=== PATIENT | female | born 1945 | race Caucasian/White ===

== ENCOUNTER 2019-12-09 04:50 | Inpatient (IN) ==
[2019-12-09] MEDS ORDERED: Naloxone 0.4 MG/ML INJ IVP PRN (07:51)
[2019-12-09] MEDS ORDERED: Ipratropium/Albuterol Neb 3 ML IH PRN (07:54)
[2019-12-09 10:10] LABS: Basophils % 0.5 %; Eosinophils # 0.1 K/mcL (0.0-0.6); Eosinophils % 0.7 %; Hematocrit 42.1 % (35.3-44.9); Hemoglobin 12.9 g/dL (11.5-15.4); Immature Granulocytes % 0.3 % (0-4); Lymphocytes # 1.2 K/mcL (0.6-4.6); Lymphocytes % 16.1 %; Mean Corpuscular HGB Conc 30.6 g/dL (31.6-35.5); Mean Corpuscular Hemoglobin 28.5 pg (28.0-33.3); Mean Corpuscular Volume 93.1 fL (83.0-100.0); Mean Platelet Volume 9.2 fL (9.4-12.4); Monocytes # 0.6 K/mcL (0.0-1.3); Neutrophils # 5.5 K/mcL (1.6-8.9); Platelet Count 441 K/mcL (140-400); Red Blood Count 4.52 M/mcL (3.82-4.97); Red Cell Distribution Width 15.6 % (11.5-14.5); Segmented Neutrophils % 74.4 %; White Blood Count 7.4 K/mcL (4.3-11.1)
[2019-12-09 10:29] LABS: Alanine Aminotransferase 3 Units/L (7-52); Albumin/Globulin Ratio 1.2 (1.1-2.2); Alkaline Phosphatase 90 Units/L (34-104); Aspartate Amino Transferase 16 Units/L (13-39); BUN/Creatinine Ratio 22 (6-26); Bilirubin,Total 0.4 mg/dL (0.3-1.0); Blood Urea Nitrogen 18 mg/dL (8-23); Calcium 9.6 mg/dL (8.6-10.3); Carbon Dioxide 24 mEq/L (23-29); Chloride 102 mEq/L (98-107); Globulin 3.4 g/dL (2.4-3.5); Glucose 110 mg/dL (70-105); Osmolality,Calculated 283 (280-300); Potassium 4.6 mEq/L (3.5-5.1); Sodium 135 mEq/L (136-145); Total Protein 7.4 g/dL (6.4-8.9); eGFR For African Americans > 60 (> 60); eGFR For Non-African Americans > 60 (> 60)
[2019-12-09] MEDS: lisinopriL 5 MG TABLET PO SCH (11:03)
[2019-12-09] MEDS: carvediloL 6.25 MG TABLET PO SCH ×2 (11:03→20:49)
[2019-12-09] MEDS: Spironolactone 25 MG TABLET PO SCH (11:03)
[2019-12-09] MEDS: Nicotine 14 MG PATCH.TD24 TD SCH (17:04)
[2019-12-09] MEDS ORDERED: *HR* Rivaroxaban 10 MG TABLET PO SCH (18:00)
[2019-12-09] MEDS ORDERED: Acetaminophen 325 MG TABLET PO ONE (20:59)
[2019-12-10] MEDS ORDERED: Acetaminophen 325 MG TABLET PO ONE (03:20)
[2019-12-10 03:25] LABS: Hematocrit 37.5 % (35.3-44.9); Hemoglobin 11.5 g/dL (11.5-15.4); Mean Corpuscular HGB Conc 30.7 g/dL (31.6-35.5); Mean Corpuscular Hemoglobin 28.4 pg (28.0-33.3); Mean Corpuscular Volume 92.6 fL (83.0-100.0); Mean Platelet Volume 9.1 fL (9.4-12.4); Platelet Count 365 K/mcL (140-400); Red Blood Count 4.05 M/mcL (3.82-4.97); Red Cell Distribution Width 15.3 % (11.5-14.5); White Blood Count 6.3 K/mcL (4.3-11.1)
[2019-12-10 03:42] LABS: BUN/Creatinine Ratio 28 (6-26); Blood Urea Nitrogen 20 mg/dL (8-23); Calcium 9.1 mg/dL (8.6-10.3); Carbon Dioxide 26 mEq/L (23-29); Chloride 103 mEq/L (98-107); Glucose 115 mg/dL (70-105); Osmolality,Calculated 284 (280-300); Potassium 4.3 mEq/L (3.5-5.1); Sodium 135 mEq/L (136-145); eGFR For African Americans > 60 (> 60); eGFR For Non-African Americans > 60 (> 60)
[2019-12-10] MEDS: Nicotine 14 MG PATCH.TD24 TD SCH (08:20)
[2019-12-10] MEDS: lisinopriL 5 MG TABLET PO SCH (08:20)
[2019-12-10] MEDS: Spironolactone 25 MG TABLET PO SCH (08:20)
[2019-12-10] MEDS: carvediloL 6.25 MG TABLET PO SCH ×2 (08:20→19:58)
[2019-12-10] MEDS ORDERED: Acetaminophen 325 MG TABLET PO PRN (13:52)
[2019-12-10] MEDS ORDERED: cefTRIAXone 1,000 MG in Water for inj. (sterile) 10 ML IVP SCH (19:00)
[2019-12-10] MEDS: Doxycycline 100 MG CAPSULE PO SCH (19:58)
[2019-12-11 05:55] LABS: Mean Corpuscular HGB Conc 30.8 g/dL (31.6-35.5); Mean Corpuscular Hemoglobin 27.8 pg (28.0-33.3); Mean Corpuscular Volume 90.5 fL (83.0-100.0); Mean Platelet Volume 9.1 fL (9.4-12.4); Platelet Count 408 K/mcL (140-400); Red Blood Count 4.31 M/mcL (3.82-4.97); Red Cell Distribution Width 15.3 % (11.5-14.5); White Blood Count 6.9 K/mcL (4.3-11.1)
[2019-12-11] MEDS: MethylPREDNISolone 40 MG/ML VIAL IVP SCH ×2 (06:02→17:33)
[2019-12-11 06:10] LABS: BUN/Creatinine Ratio 27 (6-26); Blood Urea Nitrogen 18 mg/dL (8-23); Calcium 9.1 mg/dL (8.6-10.3); Carbon Dioxide 26 mEq/L (23-29); Chloride 101 mEq/L (98-107); Glucose 106 mg/dL (70-105); Osmolality,Calculated 282 (280-300); Potassium 4.2 mEq/L (3.5-5.1); Sodium 135 mEq/L (136-145); eGFR For African Americans > 60 (> 60); eGFR For Non-African Americans > 60 (> 60)
[2019-12-11] MEDS ORDERED: *HR* Rocuronium Bromide 50 MG/5 ML VIAL ONE (07:48)
[2019-12-11] MEDS ORDERED: *HR* Succinylcholine 200 MG/10 ML VIAL IVP ONE (07:48)
[2019-12-11] MEDS ORDERED: Dexamethasone 4 MG/ML VIAL ONE (07:48)
[2019-12-11] MEDS ORDERED: Ondansetron 4 MG/2 ML VIAL ONE (07:48)
[2019-12-11] MEDS ORDERED: Lidocaine -MPF 2% 2 ML VIAL ONE (07:48)
[2019-12-11] MEDS ORDERED: Lidocaine -MPF 4% 5 ML AMPUL ONE (07:48)
[2019-12-11] MEDS ORDERED: *HR* Propofol 200 MG/20 ML VIAL IVP ONE (07:49)
[2019-12-11] MEDS ORDERED: *HR* FentaNYL (PF) 100 MCG/2 ML VIAL ONE (07:49)
[2019-12-11] MEDS ORDERED: *HR* PHENYLEPHRINE 1,000 MCG/10 ML SYRINGE IVP ONE (08:57)
[2019-12-11] MEDS ORDERED: *HR* EPINEPHrine 1 MG/10 ML SYRINGE INTRATRACH PRN (09:20)
[2019-12-11] MEDS ORDERED: Artificial Tears SOLN 15 ML BOTTLE BOTH EYES PRN (09:25)
[2019-12-11] MEDS: Spironolactone 25 MG TABLET PO SCH (11:04)
[2019-12-11] MEDS: Nicotine 14 MG PATCH.TD24 TD SCH (11:05)
[2019-12-11] MEDS: carvediloL 6.25 MG TABLET PO SCH ×2 (11:05→21:52)
[2019-12-11] MEDS: lisinopriL 5 MG TABLET PO SCH (11:06)
[2019-12-11] MEDS: FentaNYL (PF) 1,000 MCG/100 ML IV.SOLN IVC SCH ×2 (11:07→19:19)
[2019-12-11] MEDS: Midazolam HCl 50 MG/100 ML IV.SOLN IVC SCH (11:08)
[2019-12-11 11:39] LABS: ABG Base Excess 1 mEq/L (-2 to 3); ABG HCO3 28 mEq/L (21-27); ABG Oxygen Saturation 95 % (95-98); ABG PCO2 51 mmHg (35-45); ABG PH 7.35 pH Units (7.32-7.45); ABG PO2 80 mmHg (85-104); ABG TCO2 30 mEq/L (20-26); Blood Gas Modality AF; Blood Gas VT 400 cc
[2019-12-11] MEDS ORDERED: *HR* EPINEPHrine 1 MG/10 ML SYRINGE ONE (11:48)
[2019-12-11] MEDS: Chlorhexidine Rinse 15 ML MOUTHWASH MM SCH ×2 (12:56→19:46)
[2019-12-11] MEDS: Doxycycline 100 MG CAPSULE PO SCH ×2 (12:56→19:48)
[2019-12-11] MEDS: Artificial Tears SOLN 15 ML BOTTLE BOTH EYES SCH ×3 (12:56→19:47)
[2019-12-11] MEDS: cefTRIAXone 1,000 MG in Water for inj. (sterile) 10 ML IVP SCH (17:32)
[2019-12-11] MEDS ORDERED: 0.9 % Sodium Chloride 500 ML IVC ONE (22:14)
[2019-12-12] MEDS: Artificial Tears SOLN 15 ML BOTTLE BOTH EYES SCH ×7 (00:10→23:36)
[2019-12-12] MEDS ORDERED: 0.9 % Sodium Chloride 1,000 ML IVC SCH (02:15)
[2019-12-12] MEDS ORDERED: 0.9 % Sodium Chloride 500 ML IVC ONE (02:28)
[2019-12-12] MEDS ORDERED: 0.9 % Sodium Chloride 500 ML ONE (02:33)
[2019-12-12 04:19] LABS: Hematocrit 41.1 % (35.3-44.9); Hemoglobin 12.8 g/dL (11.5-15.4); Immature Granulocytes % 0.3 % (0-4); Lymphocytes # 0.9 K/mcL (0.6-4.6); Lymphocytes % 10.3 %; Mean Corpuscular HGB Conc 31.1 g/dL (31.6-35.5); Mean Corpuscular Hemoglobin 28.4 pg (28.0-33.3); Mean Corpuscular Volume 91.3 fL (83.0-100.0); Mean Platelet Volume 8.9 fL (9.4-12.4); Monocytes # 0.3 K/mcL (0.0-1.3); Monocytes % 3.3 %; Neutrophils # 7.7 K/mcL (1.6-8.9); Platelet Count 421 K/mcL (140-400); Red Cell Distribution Width 15.4 % (11.5-14.5); Segmented Neutrophils % 86.1 %
[2019-12-12 04:33] LABS: Calcium 8.7 mg/dL (8.6-10.3); Potassium 4.8 mEq/L (3.5-5.1)
[2019-12-12 04:52] LABS: ABG Base Excess -2 mEq/L (-2 to 3); ABG HCO3 25 mEq/L (21-27); ABG Oxygen Saturation 97 % (95-98); ABG PCO2 46 mmHg (35-45); ABG PH 7.34 pH Units (7.32-7.45); ABG PO2 94 mmHg (85-104); ABG TCO2 26 mEq/L (20-26); Blood Gas Modality ASSIST CONTROL; Blood Gas VT 400 cc
[2019-12-12] MEDS: MethylPREDNISolone 40 MG/ML VIAL IVP SCH ×2 (05:00→17:24)
[2019-12-12] MEDS: Nicotine 14 MG PATCH.TD24 TD SCH (07:38)
[2019-12-12] MEDS: Spironolactone 25 MG TABLET PO SCH (07:38)
[2019-12-12] MEDS: Doxycycline 100 MG CAPSULE PO SCH ×2 (07:38→20:02)
[2019-12-12] MEDS: carvediloL 6.25 MG TABLET PO SCH (07:38)
[2019-12-12] MEDS: Chlorhexidine Rinse 15 ML MOUTHWASH MM SCH ×2 (07:38→20:03)
[2019-12-12] MEDS: lisinopriL 5 MG TABLET PO SCH (07:38)
[2019-12-12] MEDS ORDERED: Lidocaine -MPF 2% 2 ML VIAL ONE (08:29)
[2019-12-12] MEDS ORDERED: *HR* Midazolam HCl 2 MG/2 ML VIAL ONE (08:30)
[2019-12-12] MEDS ORDERED: *HR* Vasopressin 20 UNIT/ML VIAL ONE (08:34)
[2019-12-12] MEDS ORDERED: *HR* EPINEPHrine 1 MG/10 ML SYRINGE INTRATRACH PRN (09:57)
[2019-12-12] MEDS ORDERED: *HR* Rocuronium Bromide 50 MG/5 ML VIAL ONE (10:04)
[2019-12-12] MEDS ORDERED: *HR* EPINEPHrine 1 MG/10 ML SYRINGE ONE (10:06)
[2019-12-12] MEDS: FentaNYL (PF) 1,000 MCG/100 ML IV.SOLN IVC SCH ×2 (11:36→23:37)
[2019-12-12] MEDS ORDERED: Ringers Solution, Lactated 250 ML IVC PRN (12:03)
[2019-12-12 14:53] LABS: Source of Body Fluid LUL BAL
[2019-12-12] MEDS: Isovue-370 500 ML BOTTLE IVP ONE (16:46)
[2019-12-12 17:21] LABS: Appearance of Body Fluid Cloudy (Clear); Volume of Body Fluid 25 mL
[2019-12-12] MEDS: cefTRIAXone 1,000 MG in Water for inj. (sterile) 10 ML IVP SCH (17:24)
[2019-12-12] MEDS ORDERED: Ringers Solution, Lactated 500 ML IVC ONE (18:43)
[2019-12-12] MEDS: Midazolam HCl 50 MG/100 ML IV.SOLN IVC SCH (20:03)
[2019-12-13] MEDS: Artificial Tears SOLN 15 ML BOTTLE BOTH EYES SCH ×3 (04:26→10:58)
[2019-12-13 04:44] LABS: ABG Base Excess -2 mEq/L (-2 to 3); ABG HCO3 24 mEq/L (21-27); ABG Oxygen Saturation 97 % (95-98); ABG PCO2 44 mmHg (35-45); ABG PH 7.35 pH Units (7.32-7.45); ABG PO2 99 mmHg (85-104); ABG TCO2 26 mEq/L (20-26); Blood Gas Modality ASSIST CONTROL; Blood Gas VT 400 cc
[2019-12-13] MEDS: MethylPREDNISolone 40 MG/ML VIAL IVP SCH (06:10)
[2019-12-13 07:16] LABS: Hematocrit 39.2 % (35.3-44.9); Hemoglobin 11.9 g/dL (11.5-15.4); Immature Granulocytes % 0.4 % (0-4); Lymphocytes # 0.7 K/mcL (0.6-4.6); Lymphocytes % 6.4 %; Mean Corpuscular HGB Conc 30.4 g/dL (31.6-35.5); Mean Corpuscular Hemoglobin 27.9 pg (28.0-33.3); Mean Corpuscular Volume 91.8 fL (83.0-100.0); Monocytes # 0.5 K/mcL (0.0-1.3); Monocytes % 5.2 %; Neutrophils # 9.2 K/mcL (1.6-8.9); Platelet Count 437 K/mcL (140-400); Red Blood Count 4.27 M/mcL (3.82-4.97); Red Cell Distribution Width 15.6 % (11.5-14.5); White Blood Count 10.4 K/mcL (4.3-11.1)
[2019-12-13 07:36] LABS: Calcium 8.7 mg/dL (8.6-10.3); Magnesium 2.1 mg/dL (1.6-2.6); Potassium 5.1 mEq/L (3.5-5.1)
[2019-12-13] MEDS: Nicotine 14 MG PATCH.TD24 TD SCH (08:02)
[2019-12-13] MEDS: Chlorhexidine Rinse 15 ML MOUTHWASH MM SCH (08:02)
[2019-12-13] MEDS: Doxycycline 100 MG CAPSULE PO SCH ×2 (08:02→21:36)
[2019-12-13] MEDS: Midazolam HCl 50 MG/100 ML IV.SOLN IVC SCH (10:43)
[2019-12-13] MEDS ORDERED: Acetaminophen 325 MG TABLET PO PRN (11:10)
[2019-12-13] MEDS ORDERED: Ipratropium/Albuterol Neb 3 ML IH PRN (11:10)
[2019-12-13] MEDS ORDERED: cefTRIAXone 1,000 MG in Water for inj. (sterile) 10 ML IVP SCH (18:00)
[2019-12-13] MEDS ORDERED: carvediloL 6.25 MG TABLET PO SCH (21:00)
[2019-12-14 00:47] LABS: Basophils % 0.1 %; Hematocrit 39.9 % (35.3-44.9); Hemoglobin 12.3 g/dL (11.5-15.4); Immature Granulocytes % 0.3 % (0-4); Lymphocytes # 0.7 K/mcL (0.6-4.6); Lymphocytes % 5.3 %; Mean Corpuscular HGB Conc 30.8 g/dL (31.6-35.5); Mean Corpuscular Hemoglobin 28.1 pg (28.0-33.3); Mean Corpuscular Volume 91.1 fL (83.0-100.0); Mean Platelet Volume 8.9 fL (9.4-12.4); Monocytes # 1.3 K/mcL (0.0-1.3); Monocytes % 10.6 %; Neutrophils # 10.5 K/mcL (1.6-8.9); Platelet Count 431 K/mcL (140-400); Red Blood Count 4.38 M/mcL (3.82-4.97); Red Cell Distribution Width 15.6 % (11.5-14.5); Segmented Neutrophils % 83.7 %; White Blood Count 12.5 K/mcL (4.3-11.1)
[2019-12-14 00:50] LABS: INR 1.1
[2019-12-14 00:53] LABS: Activated Partial Thrombo Time 28.4 Seconds (26.0-36.0)
[2019-12-14 01:07] LABS: Alanine Aminotransferase 5 Units/L (7-52); Albumin 3.4 g/dL (3.5-5.7); Albumin/Globulin Ratio 1.1 (1.1-2.2); Alkaline Phosphatase 75 Units/L (34-104); Aspartate Amino Transferase 18 Units/L (13-39); BUN/Creatinine Ratio 49 (6-26); Bilirubin,Total 0.2 mg/dL (0.3-1.0); Blood Urea Nitrogen 49 mg/dL (8-23); Carbon Dioxide 29 mEq/L (23-29); Chloride 104 mEq/L (98-107); Globulin 3.2 g/dL (2.4-3.5); Glucose 135 mg/dL (70-105); Osmolality,Calculated 305 (280-300); Potassium 4.9 mEq/L (3.5-5.1); Sodium 140 mEq/L (136-145); Total Protein 6.6 g/dL (6.4-8.9); eGFR For African Americans > 60 (> 60); eGFR For Non-African Americans 54 (> 60)
[2019-12-14] MEDS: Doxycycline 100 MG CAPSULE PO SCH (08:57)
[2019-12-14] MEDS ORDERED: lisinopriL 5 MG TABLET PO SCH (09:00)
[2019-12-14] MEDS ORDERED: Spironolactone 25 MG TABLET PO SCH (09:00)
[2019-12-14] MEDS ORDERED: Nicotine 14 MG PATCH.TD24 TD SCH (09:00)
[2019-12-14 11:51] VITALS: BP 160/85
[2019-12-17 18:51] LABS: A1A SZ Specimen WHOLE BLOOD; Alpha-1-Antitrypsin S Allele NEGATIVE; Alpha-1-Antitrypsin Z Allele NEGATIVE
[2019-12-18 07:19] LABS: Alpha-1-Antitrypsin 198 mg/dL (90-200)
== END 2019-12-14 17:31 | disposition home or self-care (01) | DRG 163 ==
LOC: 2NENU → SUATTDRO 06:25 → 2NENU 12-11 09:23 → SUATTDRO 12-11 18:08 → ICNU 12-12 10:33 → 2NNU 12-13 12:30
PROVIDERS: ADMIT Student in an Organized Health Care Education/Training Program; ATTEND Internal Medicine
PROC: ENDOBRF (2019-12-13 15:30)

== ENCOUNTER 2021-02-21 15:23 | Inpatient (IN) ==
[2021-02-21] MEDS ORDERED: 0.9 % Sodium Chloride 1,000 ML IVC ONE ×2 (15:46→23:02)
[2021-02-21] MEDS ORDERED: Amiodarone Premix 150 MG/100 ML BAG IVPB ONE ×2 (15:56→19:10)
[2021-02-21 16:22] LABS: Basophils % 0.1 %; Hematocrit 28.6 % (35.3-44.9); Hemoglobin 8.8 g/dL (11.5-15.4); Lymphocytes # 0.8 K/mcL (0.6-4.6); Lymphocytes % 4.6 %; Mean Corpuscular HGB Conc 30.8 g/dL (31.6-35.5); Mean Corpuscular Hemoglobin 30.9 pg (28.0-33.3); Mean Corpuscular Volume 100.4 fL (83.0-100.0); Mean Platelet Volume 8.1 fL (9.4-12.4); Monocytes # 0.7 K/mcL (0.0-1.3); Neutrophils # 15.7 K/mcL (1.6-8.9); Nucleated Red Blood Cells 1.6 /100 WBC (0); Platelet Count 851 K/mcL (140-400); Red Blood Count 2.85 M/mcL (3.82-4.97); Red Cell Distribution Width 19.4 % (11.5-14.5); Segmented Neutrophils % 89.3 %; White Blood Count 17.5 K/mcL (4.3-11.1)
[2021-02-21 16:36] LABS: INR 2.7
[2021-02-21 16:39] LABS: Activated Partial Thrombo Time 36.1 Seconds (26.0-36.0)
[2021-02-21 16:43] LABS: Alanine Aminotransferase 3 Units/L (7-52); Albumin 2.9 g/dL (3.5-5.7); Albumin/Globulin Ratio 0.9 (1.1-2.2); Alkaline Phosphatase 118 Units/L (34-104); Aspartate Amino Transferase 10 Units/L (13-39); BUN/Creatinine Ratio 35 (6-26); Bilirubin,Direct 0.1 mg/dL (0.0-0.2); Bilirubin,Indirect 0.3 mg/dL (0.0-1.0); Bilirubin,Total 0.4 mg/dL (0.3-1.0); Blood Urea Nitrogen 39 mg/dL (8-23); Calcium 8.8 mg/dL (8.6-10.3); Carbon Dioxide 24 mEq/L (23-29); Chloride 95 mEq/L (98-107); Globulin 3.4 g/dL (2.4-3.5); Glucose 130 mg/dL (70-105); Magnesium 2.3 mg/dL (1.6-2.6); Osmolality,Calculated 279 (280-300); Potassium 5.4 mEq/L (3.5-5.1); Sodium 129 mEq/L (136-145); Total Protein 6.3 g/dL (6.4-8.9); Troponin I < 0.03 ng/mL (< 0.04); eGFR For African Americans 58 (> 60); eGFR For Non-African Americans 48 (> 60)
[2021-02-21] MEDS ORDERED: 0.9 % Sodium Chloride 500 ML IVC ONE (19:21)
[2021-02-21] MEDS ORDERED: Acetaminophen 325 MG TABLET PO ONE (20:46)
[2021-02-21] MEDS ORDERED: Cefepime HCl 2,000 MG in 0.9 % Sodium Chloride Mini Bag 100 ML IVPB STA (20:59)
[2021-02-21] MEDS ORDERED: Melatonin 3 MG TABLET PO PRN (22:24)
[2021-02-21] MEDS ORDERED: Acetaminophen 325 MG TABLET PO PRN (22:24)
[2021-02-21] MEDS ORDERED: Naloxone 0.4 MG/ML INJ IVP PRN (22:24)
[2021-02-22] MEDS ORDERED: Amiodarone Premix 360 MG/200 ML BAG IVC ONE (04:05)
[2021-02-22] MEDS ORDERED: Albumin Human 5% 12.5 GM/250 ML IV.SOLN IVPB ONE (04:07)
[2021-02-22 04:23] LABS: Basophils % 0.1 %; Hemoglobin 8.5 g/dL (11.5-15.4); Lymphocytes % 6.3 %; Mean Corpuscular HGB Conc 31.5 g/dL (31.6-35.5); Mean Corpuscular Hemoglobin 31.7 pg (28.0-33.3); Mean Corpuscular Volume 100.7 fL (83.0-100.0); Monocytes # 0.7 K/mcL (0.0-1.3); Monocytes % 4.4 %; Neutrophils # 14.2 K/mcL (1.6-8.9); Nucleated Red Blood Cells 1.2 /100 WBC (0); Platelet Count 743 K/mcL (140-400); Red Blood Count 2.68 M/mcL (3.82-4.97); Red Cell Distribution Width 19.6 % (11.5-14.5); Segmented Neutrophils % 87.2 %; White Blood Count 16.2 K/mcL (4.3-11.1)
[2021-02-22 04:45] LABS: Alanine Aminotransferase 4 Units/L (7-52); Albumin 2.6 g/dL (3.5-5.7); Albumin/Globulin Ratio 0.9 (1.1-2.2); Alkaline Phosphatase 114 Units/L (34-104); Aspartate Amino Transferase 8 Units/L (13-39); BUN/Creatinine Ratio 36 (6-26); Bilirubin,Total 0.3 mg/dL (0.3-1.0); Blood Urea Nitrogen 35 mg/dL (8-23); Calcium 8.1 mg/dL (8.6-10.3); Carbon Dioxide 21 mEq/L (23-29); Chloride 98 mEq/L (98-107); Glucose 121 mg/dL (70-105); Osmolality,Calculated 277 (280-300); Phosphorous 4.1 mg/dL (2.7-4.5); Potassium 4.7 mEq/L (3.5-5.1); Sodium 129 mEq/L (136-145); Total Protein 5.6 g/dL (6.4-8.9); Troponin I 0.03 ng/mL (< 0.04); eGFR For African Americans > 60 (> 60); eGFR For Non-African Americans 55 (> 60)
[2021-02-22 04:58] LABS: Thyroid Stimulating Hormone 12.591 mcIU/mL (0.340-5.600)
[2021-02-22] MEDS: Cefepime HCl 2,000 MG in Water for inj. (sterile) 20 ML IVP SCH ×2 (05:54→17:32)
[2021-02-22] MEDS ORDERED: *HR* Heparin 5,000 UNIT/ML VIAL SQ SCH (06:00)
[2021-02-22 07:03] LABS: Bacteria,Urine Few per hpf (None-Few); Bilirubin,Urine Negative (Negative); Blood,Urine Negative (Negative); Clarity,Urine Turbid (Clear); Color,Urine Yellow (Yellow); Glucose,Urine (UA) Normal (Normal); Hyaline Casts,Urine Few per lpf (None Seen); Ketones,Urine Trace mg/dL (Negative); Leukocyte Esterase,Urine Negative (Negative); Mucus,Urine Few per lpf (None-Few); Nitrite,Urine Negative (Negative); PH,Urine 5.5 pH Units (5.0-8.0); Protein,Urine Trace mg/dL (Neg-Trace); RBC,Urine 0-3 per hpf (0-3); Specific Gravity,Urine 1.027 (1.010-1.025); Squamous Epithelial Cell,Urine Many per hpf (None-Few); Urobilinogen,Urine Normal (Normal)
[2021-02-22] MEDS ORDERED: Amiodarone Premix 360 MG/200 ML BAG IVC SCH (10:06)
[2021-02-22] MEDS: 0.9 % Sodium Chloride 1,000 ML IVC SCH ×2 (12:44→22:56)
[2021-02-22] MEDS ORDERED: *HR* Heparin 5,000 UNIT/ML VIAL IVP PRN ×2 (13:18)
[2021-02-22] MEDS ORDERED: Heparin 25,000UNIT/250ML 1/2NS 25,000 UNIT/250 ML IV.SOLN IVC SCH ×2 (13:30→13:45)
[2021-02-22] MEDS: Ondansetron 4 MG/2 ML VIAL IVP PRN (17:31)
[2021-02-22] MEDS ORDERED: Furosemide 40 MG TABLET PO SCH (18:45)
[2021-02-22] MEDS ORDERED: carvediloL 6.25 MG TABLET PO SCH (21:00)
[2021-02-22] MEDS: Metoprolol XL (24 HR) Succ 50 MG TAB.ER.24H PO SCH (21:30)
[2021-02-23 05:04] LABS: Basophils % 0.1 %; Hematocrit 27.3 % (35.3-44.9); Hemoglobin 8.1 g/dL (11.5-15.4); Immature Granulocytes % 1.9 % (0-4); Lymphocytes # 0.8 K/mcL (0.6-4.6); Lymphocytes % 5.7 %; Mean Corpuscular HGB Conc 29.7 g/dL (31.6-35.5); Mean Corpuscular Hemoglobin 30.7 pg (28.0-33.3); Mean Corpuscular Volume 103.4 fL (83.0-100.0); Mean Platelet Volume 8.4 fL (9.4-12.4); Monocytes # 0.8 K/mcL (0.0-1.3); Monocytes % 5.6 %; Neutrophils # 12.6 K/mcL (1.6-8.9); Nucleated Red Blood Cells 1.8 /100 WBC (0); Platelet Count 646 K/mcL (140-400); Red Blood Count 2.64 M/mcL (3.82-4.97); Red Cell Distribution Width 19.7 % (11.5-14.5); Segmented Neutrophils % 86.7 %; White Blood Count 14.5 K/mcL (4.3-11.1)
[2021-02-23 05:18] LABS: BUN/Creatinine Ratio 33 (6-26); Blood Urea Nitrogen 32 mg/dL (8-23); Calcium 8.1 mg/dL (8.6-10.3); Carbon Dioxide 17 mEq/L (23-29); Chloride 103 mEq/L (98-107); Glucose 91 mg/dL (70-105); Osmolality,Calculated 280 (280-300); Potassium 4.8 mEq/L (3.5-5.1); Sodium 132 mEq/L (136-145); eGFR For African Americans > 60 (> 60); eGFR For Non-African Americans 56 (> 60)
[2021-02-23] MEDS: Cefepime HCl 2,000 MG in Water for inj. (sterile) 20 ML IVP SCH ×2 (06:18→17:50)
[2021-02-23] MEDS ORDERED: Budesonide Neb 0.5 MG/2 ML IH ONE (07:22)
[2021-02-23] MEDS: Metoprolol XL (24 HR) Succ 50 MG TAB.ER.24H PO SCH (08:05)
[2021-02-23] MEDS ORDERED: Cyanocobalamin (B-12) 1,000 MCG TABLET PO SCH (09:00)
[2021-02-23] MEDS ORDERED: Spironolactone 25 MG TABLET PO SCH (09:00)
[2021-02-23] MEDS: 0.9 % Sodium Chloride 1,000 ML IVC SCH ×2 (09:06→20:34)
[2021-02-23] MEDS ORDERED: Budesonide Neb 0.25 MG/2 ML IH SCH (10:00)
[2021-02-23] MEDS: Ondansetron 4 MG/2 ML VIAL IVP PRN (10:02)
[2021-02-23] MEDS ORDERED: Lactulose Oral Soln 20 GM/30 ML UDC PO ONE (12:34)
[2021-02-23] MEDS ORDERED: Morphine Sulfate Oral CONC 10 MG/0.5 ML ORAL.SYG SL PRN (12:35)
[2021-02-23] MEDS ORDERED: Prochlorperazine 10 MG/2 ML VIAL IVP PRN (12:36)
[2021-02-23] MEDS ORDERED: Metoprolol XL (24 HR) Succ 50 MG TAB.ER.24H PO SCH (21:00)
[2021-02-23 22:55] VITALS: O2SAT 88
[2021-02-24 00:59] LABS: Basophils % 0.2 %; Hemoglobin 8.2 g/dL (11.5-15.4); Mean Platelet Volume 8.1 fL (9.4-12.4)
[2021-02-24 01:00] LABS: Basophils # 0.1 K/mcL (0.0-0.2); Hematocrit 28.5 % (35.3-44.9); Immature Granulocytes % 4.6 % (0-4); Lymphocytes # 0.5 K/mcL (0.6-4.6); Lymphocytes % 1.9 %; Mean Corpuscular HGB Conc 28.8 g/dL (31.6-35.5); Mean Corpuscular Hemoglobin 31.2 pg (28.0-33.3); Mean Corpuscular Volume 108.4 fL (83.0-100.0); Monocytes # 0.8 K/mcL (0.0-1.3); Monocytes % 3.1 %; Neutrophils # 24.4 K/mcL (1.6-8.9); Nucleated Red Blood Cells 2.4 /100 WBC (0); Platelet Count 655 K/mcL (140-400); Red Blood Count 2.63 M/mcL (3.82-4.97); Red Cell Distribution Width 19.8 % (11.5-14.5); Segmented Neutrophils % 90.2 %
[2021-02-24 01:17] LABS: Calcium 8.1 mg/dL (8.6-10.3); Potassium 5.2 mEq/L (3.5-5.1)
[2021-02-24] MEDS ORDERED: Ringers Solution, Lactated 500 ML IVC ONE (02:00)
[2021-02-24] MEDS ORDERED: Ringers Solution, Lactated 500 ML IVC STA (04:11)
[2021-02-24] MEDS ORDERED: Ringers Solution, Lactated 1,000 ML ONE (04:12)
[2021-02-24 04:43] LABS: ABG Base Excess -22 mEq/L (-2 to 3); ABG HCO3 8 mEq/L (21-27); ABG Oxygen Saturation 96 % (95-98); ABG PCO2 29 mmHg (35-45); ABG PH 7.03 pH Units (7.32-7.45); ABG PO2 114 mmHg (85-104); ABG TCO2 9 mEq/L (20-26)
[2021-02-24] MEDS: Cefepime HCl 2,000 MG in Water for inj. (sterile) 20 ML IVP SCH (04:59)
[2021-02-24] MEDS ORDERED: Sodium Bicarbonate 75 MEQ in 0.45 % Sodium Chloride 1,000 ML IVC SCH ×2 (05:00→07:23)
[2021-02-24] MEDS ORDERED: Isovue-370 500 ML BOTTLE IVP ONE (05:10)
[2021-02-24] MEDS ORDERED: Norepinephrine 4 MG/254 ML IV.SOLN IVC SCH ×2 (05:15→07:23)
[2021-02-24] MEDS ORDERED: *HR* Dextrose 50 % in Water (Vial) 50 ML VIAL ONE (06:19)
[2021-02-24] MEDS ORDERED: *HR* Dextrose 50 % in Water (Vial) 50 ML VIAL IVP ONE (06:29)
[2021-02-24 06:34] VITALS: TEMP 98.5
[2021-02-24] MEDS ORDERED: *HR* Heparin 5,000 UNIT/ML VIAL IVP PRN ×2 (07:23)
[2021-02-24] MEDS ORDERED: Heparin 25,000UNIT/250ML 1/2NS 25,000 UNIT/250 ML IV.SOLN IVC SCH (07:23)
[2021-02-24] MEDS ORDERED: Prochlorperazine 10 MG/2 ML VIAL IVP PRN (07:23)
[2021-02-24] MEDS ORDERED: Naloxone 0.4 MG/ML INJ IVP PRN (07:23)
[2021-02-24] MEDS ORDERED: Morphine Sulfate Oral CONC 10 MG/0.5 ML ORAL.SYG SL PRN (07:23)
[2021-02-24] MEDS ORDERED: Acetaminophen 325 MG TABLET PO PRN (07:23)
[2021-02-24] MEDS ORDERED: Melatonin 3 MG TABLET PO PRN (07:23)
[2021-02-24] MEDS ORDERED: Norepinephrine 8 MG/258 ML IV.SOLN IVC SCH (09:00)
[2021-02-24] MEDS ORDERED: Spironolactone 25 MG TABLET PO SCH (09:00)
[2021-02-24] MEDS ORDERED: Cyanocobalamin (B-12) 1,000 MCG TABLET PO SCH (09:00)
[2021-02-24] MEDS ORDERED: Metoprolol XL (24 HR) Succ 50 MG TAB.ER.24H PO SCH (09:00)
[2021-02-24 09:02] VITALS: PULSE 104
[2021-02-24] MEDS ORDERED: Budesonide Neb 0.25 MG/2 ML IH SCH (10:00)
[2021-02-24 10:26] VITALS: BP 79/44
[2021-02-24] MEDS ORDERED: MetroNIDAZOLE 500 MG/100 ML 500 MG/100 ML BAG IVPB SCH ×2 (12:00)
[2021-02-24] MEDS ORDERED: Cefepime HCl 2,000 MG in Water for inj. (sterile) 20 ML IVP SCH (18:00)
[2021-02-24] MEDS ORDERED: Furosemide 40 MG TABLET PO SCH (18:45)
== END 2021-02-24 11:14 | disposition expired | DRG 193 ==
LOC: 2NNU 15:23 → EMEROOARM 15:23 → 2NNU 21:48 → ICNU 02-24 06:16
PROVIDERS: ADMIT Family Medicine; ATTEND Family Medicine